=== PATIENT | female | born 1980 | race Caucasian/White ===

== ENCOUNTER 2018-10-28 12:16 | Inpatient (IN) | payer MEDICAID ==
[2018-10-28 14:24] LABS: ADD UMIC YES; UR ASCORBIC ACID NEGATIVE (NEGATIVE); UR BACTERIA FEW /HPF (NONE SEEN); UR BILIRUBIN (Dip) NEGATIVE (NEGATIVE); UR BLOOD (Dip) NEGATIVE (NEGATIVE); UR CLARITY CLEAR (CLEAR); UR COLOR YELLOW (YELLOW); UR GLUCOSE (Dip) NEGATIVE (NEGATIVE); UR KETONES (Dip) NEGATIVE (NEGATIVE); UR LEUKOCYTE ESTERASE (Dip) TRACE Leu/ul (NEGATIVE); UR NITRITE (Dip) NEGATIVE (NEGATIVE); UR RBC 1 /HPF (0-5); UR SQUAMOUS EPITHELIAL CELL FEW /HPF (FEW); UR TOTAL PROTEIN (Dip) 3+ mg/dl (NEGATIVE); UR UROBILINOGEN (Dip) NEGATIVE (NEGATIVE); UR WBC 3 /HPF (0-5)
[2018-10-28 14:27] LABS: ADD MAN DIFF? NO
[2018-10-28 14:32] LABS: BASOPHILS % 0.2 % (0.0-2.0); EOSINOPHILS # 0.1 10^3/ul (0.0-0.5); HEMATOCRIT 39.6 % (37.0-47.0); HEMOGLOBIN 13.2 g/dl (12.0-16.0); LYMPHOCYTES # 2.1 10^3/ul (0.8-2.9); MEAN CORPUSCULAR HEMOGLOBIN 27.6 pg (29.0-33.0); MEAN CORPUSCULAR HGB CONC 33.3 g/dl (32.0-37.0); MEAN CORPUSCULAR VOLUME 82.7 fl (82.0-101.0); MEAN PLATELET VOLUME 11.2 fl (7.4-10.4); MONOCYTE # 0.8 10^3/ul (0.3-0.9); MONOCYTES % 6.3 % (0.0-11.0); NEUTROPHILS % 74.7 % (39.0-77.0); PLATELET COUNT 222 10^3/UL (140-415); RED BLOOD COUNT 4.79 10^6/ul (4.20-5.40); RED CELL DISTRIBUTION WIDTH 13.3 % (11.5-14.5)
[2018-10-28 14:32] LABS: WHITE BLOOD COUNT 12.1 10^3/ul (4.8-10.8)
[2018-10-28] MEDS ORDERED: MAGNESIUM SULFATE 20 GM/500 ML 500 ML IV (14:50)
[2018-10-28] MEDS ORDERED: MAGNESIUM SULFATE 4 GM/100 ML 100 ML (14:50)
[2018-10-28 14:52] LABS: ALANINE AMINOTRANSFERASE 12 IU/L (13-69); ALBUMIN 3.6 g/dl (3.3-4.9); ALBUMIN/GLOBULIN RATIO 1.02; ALKALINE PHOSPHATASE 220 IU/L (42-121); ANION GAP 7 (5-13); ASPARTATE AMINO TRANSFERASE 21 IU/L (15-46); BILIRUBIN,INDIRECT 0.1 mg/dl (0-1.1); BILIRUBIN,TOTAL 0.1 mg/dl (0.2-1.3); BLOOD UREA NITROGEN 8 mg/dl (7-20); CALCIUM 9.5 mg/dl (8.4-10.2); CARBON DIOXIDE 23 mmol/L (21-31); CHLORIDE 107 mmol/L (97-110); CREATININE 0.55 mg/dl (0.44-1.00); Estimated GFR > 60 mL/min (>60); GLUCOSE 74 mg/dl (70-220); POTASSIUM 4.3 mmol/L (3.5-5.1); SODIUM 137 mmol/L (135-144); TOTAL PROTEIN 7.1 g/dl (6.1-8.1); URIC ACID 4.5 mg/dl (3.1-7.9)
[2018-10-28] MEDS ORDERED: BUTORPHANOL 2 MG INJ IV (15:00)
[2018-10-28] MEDS ORDERED: OXYTOCIN 30 UNITS/LR 500 ML IV ×2 (15:00)
[2018-10-28] MEDS ORDERED: METHYLERGONOVINE 0.2 MG INJ IM (15:00)
[2018-10-28] MEDS ORDERED: LIDOCAINE 1% (MPF) 30 ML INJ INJ (15:00)
[2018-10-28] MEDS ORDERED: CARBOPROST 250 MCG INJ IM (15:00)
[2018-10-28] MEDS ORDERED: MISOPROSTOL 50 MCG CAPSULE VAG (15:00)
[2018-10-28] MEDS ORDERED: AMPICILLIN 2 GM/NS (PMX) 100 ML IV (15:00)
[2018-10-28 15:02] LABS: INR 0.85; PROTIME 11.7 Sec (11.9-14.9); PT RATIO 0.9
[2018-10-28] MEDS: LACTATED RINGER'S 1,000 ML IV ×2 (15:10→15:14)
[2018-10-28] MEDS: MAGNESIUM SULFATE 4 GM/100 ML 100 ML IV (15:14)
[2018-10-28] MEDS: MAGNESIUM SULFATE 20 GM/500 ML 500 ML IV (15:20)
[2018-10-28 15:37] LABS: HEPATITIS B SURFACE ANTIGEN NEGATIVE (NEGATIVE)
[2018-10-28] MEDS: LABETALOL HCL 20MG INJ IV ×4 (16:48→23:05)
[2018-10-28] MEDS: MISOPROSTOL 50 MCG CAPSULE PO ×2 (16:49→20:59)
[2018-10-28 18:56] LABS: MAGNESIUM 4.6 mg/dl (1.7-2.5)
[2018-10-28] MEDS ORDERED: AMPICILLIN 1 GM/NS (PMX) 50 ML IV (19:00)
[2018-10-28] MEDS ORDERED: hydrALAzine 20 MG INJ IV (19:30)
[2018-10-28] MEDS ORDERED: LABETALOL HCL 20MG INJ IV (23:30)
[2018-10-29] MEDS ORDERED: hydrALAzine 20 MG INJ IV (01:00)
[2018-10-29 01:27] LABS: MAGNESIUM 5.6 mg/dl (1.7-2.5)
[2018-10-29] MEDS: LACTATED RINGER'S 1,000 ML IV ×2 (01:37→13:02)
[2018-10-29] MEDS ORDERED: OXYTOCIN 10 UNIT INJ ×2 (01:55)
[2018-10-29] MEDS ORDERED: morphine SULFATE/PF (10 MG/10 ML) INJ (01:55)
[2018-10-29] MEDS ORDERED: METOCLOPRAMIDE 10 MG INJ (01:56)
[2018-10-29] MEDS ORDERED: FAMOTIDINE 20 MG INJ (01:56)
[2018-10-29] MEDS ORDERED: ONDANSETRON 4 MG INJ (01:56)
[2018-10-29] MEDS: METOCLOPRAMIDE 10 MG INJ IV (01:59)
[2018-10-29] MEDS ORDERED: MISOPROSTOL 200 MCG TAB PR ×2 (02:00→10:00)
[2018-10-29] MEDS ORDERED: NALOXONE (0.4 MG/ML) INJ IV ×2 (02:00→03:30)
[2018-10-29] MEDS ORDERED: OXYTOCIN 30 UNITS/LR 500 ML IV ×3 (02:00→10:00)
[2018-10-29] MEDS ORDERED: ONDANSETRON 4 MG INJ IV ×3 (02:00→03:30)
[2018-10-29] MEDS ORDERED: HYDROmorphONE 1 MG/5 ML IV SYRINGE IV ×3 (02:00)
[2018-10-29] MEDS ORDERED: METHYLERGONOVINE 0.2 MG INJ IM (02:00)
[2018-10-29] MEDS ORDERED: DIPHENHYDRAMINE 50 MG INJ IV ×3 (02:00→03:30)
[2018-10-29] MEDS ORDERED: FENTAnyl 50 MCG/ML VIAL IV ×2 (02:00)
[2018-10-29] MEDS ORDERED: HYDROmorphONE 0.5 MG/0.5 ML SYG IV ×4 (02:00→03:30)
[2018-10-29] MEDS ORDERED: CARBOPROST 250 MCG INJ IM ×2 (02:00→10:00)
[2018-10-29] MEDS ORDERED: KETOROLAC 30 MG INJ IV ×3 (02:00→03:30)
[2018-10-29] MEDS: ONDANSETRON 4 MG INJ IV (02:01)
[2018-10-29] MEDS: FAMOTIDINE 20 MG INJ IV (02:04)
[2018-10-29 03:11] LABS: AADO2 Venous 71.9 mmHg; MODE ROOM AIR; Sample Type Blood venous; Site CORD; Venous COHb 0.3 %; Venous Fraction OxyHgb 19.2 %; Venous Oxygen Sat 19.7 mmHG (55.0-75.0); Venous Total Hemglobin 16.4 g/dl
[2018-10-29 03:16] LABS: AADO2 Arterial 69.8 mmHg (7.0-24.0); Arterial Base Excess -4.4 mmol/L (-3.0-3); Arterial Blood Gas Oxygen Sat 17.2 mmHG (95.0-98.0); Arterial COHb 0.3 % (0.0-3.0); Arterial Fraction of Oxyhgb 16.8 % (93.0-99.0); Arterial HCO3 23.9 mmol/L (22.0-26.0); Arterial pCO2 56.8 mmhg (35-45); MODE ROOM AIR; Site CORD
[2018-10-29] MEDS ORDERED: ZOLPIDEM 5 MG TAB PO (03:30)
[2018-10-29] MEDS ORDERED: ACETAMINOPHEN 500 MG TAB PO (03:30)
[2018-10-29] MEDS: MAGNESIUM SULFATE 20 GM/500 ML 500 ML IV ×3 (04:01→22:13)
[2018-10-29] MEDS: MISOPROSTOL 200 MCG TAB PR (04:11)
[2018-10-29] MEDS: HYDROmorphONE 0.2 MG/ML PCA IV (04:53)
[2018-10-29] MEDS: CEFAZOLIN 2 GM/50 ML (PMX) 50 ML IVPB (05:27)
[2018-10-29] MEDS: LABETALOL HCL 20MG INJ IV ×2 (05:50→06:55)
[2018-10-29 05:56] LABS: MAGNESIUM 4.9 mg/dl (1.7-2.5)
[2018-10-29] MEDS: OXYTOCIN 30 UNITS/LR 500 ML IV ×2 (06:17→09:52)
[2018-10-29] MEDS ORDERED: PROPOFOL 200 MG INJ (07:00)
[2018-10-29] MEDS ORDERED: LANOLIN HPA 1 PKT TOP (10:00)
[2018-10-29] MEDS: LABETALOL 200 MG TAB PO ×2 (10:28→21:54)
[2018-10-29 10:30] LABS: ADD MAN DIFF? NO
[2018-10-29 10:37] LABS: BASOPHIL # 0.1 10^3/ul (0.0-0.1); BASOPHILS % 0.2 % (0.0-2.0); EOSINOPHILS % 0.1 % (0.0-7.0); HEMATOCRIT 34.8 % (37.0-47.0); HEMOGLOBIN 11.4 g/dl (12.0-16.0); LYMPHOCYTES # 1.3 10^3/ul (0.8-2.9); LYMPHOCYTES % 5.7 % (15.0-51.0); MEAN CORPUSCULAR HEMOGLOBIN 27.2 pg (29.0-33.0); MEAN CORPUSCULAR HGB CONC 32.8 g/dl (32.0-37.0); MEAN CORPUSCULAR VOLUME 83.1 fl (82.0-101.0); MEAN PLATELET VOLUME 10.9 fl (7.4-10.4); MONOCYTE # 1.3 10^3/ul (0.3-0.9); MONOCYTES % 5.9 % (0.0-11.0); NEUTROPHIL # 19.2 10^3/ul (1.6-7.5); NEUTROPHILS % 87.7 % (39.0-77.0); PLATELET COUNT 182 10^3/UL (140-415); RED BLOOD COUNT 4.19 10^6/ul (4.20-5.40); RED CELL DISTRIBUTION WIDTH 13.2 % (11.5-14.5)
[2018-10-29 10:37] LABS: WHITE BLOOD COUNT 21.9 10^3/ul (4.8-10.8)
[2018-10-29] MEDS: CEFAZOLIN 1 GM/50 ML (PMX) 50 ML IVPB ×2 (10:40→17:45)
[2018-10-29] MEDS: NIFEdipine (XL) 30 MG TAB PO (11:07)
[2018-10-29 12:54] LABS: MAGNESIUM 5.6 mg/dl (1.7-2.5)
[2018-10-29 22:02] LABS: RAPID PLASMA REAGIN NONREACTIVE (NR)
[2018-10-30 01:16] LABS: MAGNESIUM 5.8 mg/dl (1.7-2.5)
[2018-10-30] MEDS: CEFAZOLIN 1 GM/50 ML (PMX) 50 ML IVPB (02:05)
[2018-10-30] MEDS: IBUPROFEN 600 MG TAB PO ×3 (06:21→18:09)
[2018-10-30] MEDS: OXYCODONE/ACETAMINOPHEN (5/325) TAB PO (06:21)
[2018-10-30 08:03] LABS: ADD MAN DIFF? NO
[2018-10-30 08:18] LABS: ABNORMAL IP MESSAGE 1; BASOPHILS % 0.2 % (0.0-2.0); EOSINOPHILS # 0.1 10^3/ul (0.0-0.5); EOSINOPHILS % 0.2 % (0.0-7.0); HEMATOCRIT 32.5 % (37.0-47.0); HEMOGLOBIN 10.5 g/dl (12.0-16.0); LYMPHOCYTES # 1.1 10^3/ul (0.8-2.9); LYMPHOCYTES % 4.4 % (15.0-51.0); MEAN CORPUSCULAR HGB CONC 32.3 g/dl (32.0-37.0); MEAN CORPUSCULAR VOLUME 83.5 fl (82.0-101.0); MEAN PLATELET VOLUME 11.3 fl (7.4-10.4); MONOCYTE # 1.1 10^3/ul (0.3-0.9); MONOCYTES % 4.5 % (0.0-11.0); NEUTROPHIL # 22.7 10^3/ul (1.6-7.5); NEUTROPHILS % 89.8 % (39.0-77.0); PLATELET COUNT 196 10^3/UL (140-415); RED BLOOD COUNT 3.89 10^6/ul (4.20-5.40); RED CELL DISTRIBUTION WIDTH 13.6 % (11.5-14.5)
[2018-10-30 08:18] LABS: WHITE BLOOD COUNT 25.3 10^3/ul (4.8-10.8)
[2018-10-30 08:33] LABS: POSITIVE DIFF @See below
[2018-10-30] MEDS: NIFEdipine (XL) 30 MG TAB PO (09:13)
[2018-10-30] MEDS: SENNA TAB PO ×2 (09:14→21:06)
[2018-10-30] MEDS: LABETALOL 200 MG TAB PO ×2 (09:14→21:06)
[2018-10-30] MEDS: INFLUENZA VIRUS VACCINE 0.5 ML (DISPENSING) IM* (11:53)
[2018-10-30] MEDS: LACTATED RINGER'S 1,000 ML IV (16:19)
[2018-10-30] MEDS: CEFAZOLIN 2 GM/50 ML (PMX) 50 ML IVPB (17:04)
[2018-10-30 18:21] LABS: ADD UMIC YES; UR ASCORBIC ACID NEGATIVE (NEGATIVE); UR BACTERIA FEW /HPF (NONE SEEN); UR BILIRUBIN (Dip) NEGATIVE (NEGATIVE); UR BLOOD (Dip) 3+ mg/dL (NEGATIVE); UR CLARITY CLEAR (CLEAR); UR COLOR YELLOW (YELLOW); UR GLUCOSE (Dip) NEGATIVE (NEGATIVE); UR KETONES (Dip) NEGATIVE (NEGATIVE); UR LEUKOCYTE ESTERASE (Dip) TRACE Leu/ul (NEGATIVE); UR NITRITE (Dip) NEGATIVE (NEGATIVE); UR RBC 101 /HPF (0-5); UR SPECIFIC GRAVITY (Dip) 1.004 (1.003-1.030); UR SQUAMOUS EPITHELIAL CELL FEW /HPF (FEW); UR TOTAL PROTEIN (Dip) NEGATIVE (NEGATIVE); UR UROBILINOGEN (Dip) NEGATIVE (NEGATIVE); UR WBC 11 /HPF (0-5)
[2018-10-31] MEDS: IBUPROFEN 600 MG TAB PO ×4 (00:23→17:41)
[2018-10-31] MEDS: CEFAZOLIN 2 GM/50 ML (PMX) 50 ML IVPB ×3 (01:07→16:33)
[2018-10-31] MEDS: LACTATED RINGER'S 1,000 ML IV ×2 (03:07→16:34)
[2018-10-31 07:58] LABS: ADD MAN DIFF? NO
[2018-10-31 08:03] LABS: WHITE BLOOD COUNT 19.1 10^3/ul (4.8-10.8)
[2018-10-31 08:03] LABS: BASOPHILS % 0.2 % (0.0-2.0); EOSINOPHILS # 0.1 10^3/ul (0.0-0.5); EOSINOPHILS % 0.6 % (0.0-7.0); HEMATOCRIT 30.6 % (37.0-47.0); HEMOGLOBIN 9.8 g/dl (12.0-16.0); LYMPHOCYTES # 1.2 10^3/ul (0.8-2.9); LYMPHOCYTES % 6.3 % (15.0-51.0); MEAN CORPUSCULAR HEMOGLOBIN 27.3 pg (29.0-33.0); MEAN CORPUSCULAR VOLUME 85.2 fl (82.0-101.0); MEAN PLATELET VOLUME 10.7 fl (7.4-10.4); NEUTROPHIL # 16.7 10^3/ul (1.6-7.5); NEUTROPHILS % 87.1 % (39.0-77.0); PLATELET COUNT 208 10^3/UL (140-415); RED BLOOD COUNT 3.59 10^6/ul (4.20-5.40); RED CELL DISTRIBUTION WIDTH 14.1 % (11.5-14.5)
[2018-10-31] MEDS: SENNA TAB PO ×2 (09:04→20:54)
[2018-10-31] MEDS: LABETALOL 200 MG TAB PO ×2 (09:04→20:53)
[2018-10-31] MEDS: NIFEdipine (XL) 30 MG TAB PO (09:04)
[2018-11-01] MEDS: IBUPROFEN 600 MG TAB PO ×3 (00:37→12:42)
[2018-11-01] MEDS: CEFAZOLIN 2 GM/50 ML (PMX) 50 ML IVPB ×3 (00:55→14:00)
[2018-11-01] MEDS: LACTATED RINGER'S 1,000 ML IV (01:59)
[2018-11-01] MEDS ORDERED: IBUPROFEN 600 MG TAB PO (06:00)
[2018-11-01] MEDS: SENNA TAB PO (09:25)
[2018-11-01] MEDS: NIFEdipine (XL) 30 MG TAB PO (09:26)
[2018-11-01] MEDS: LABETALOL 200 MG TAB PO (09:26)
[2018-11-01] MEDS: DIPHTH/TET/ACEL PERTUSS (ADULT) 0.5 ML VIAL IM* (09:27)
== END 2018-11-01 13:45 | disposition home or self-care (01) | DRG 787 ==
LOC: OBT 12:16 → L-D 10-29 02:21 → PP1 10-29 09:34 → L-D 13:29 → OBT 14:10 → L-D 14:10
PROC: 3E033VJ Introduction of Other Hormone into Peripheral Vein, Percutaneous Approach (ICD-10-PCS; 2018-10-28)
PROC: 10D00Z1 Extraction of Products of Conception, Low, Open Approach (ICD-10-PCS; principal; 2018-10-29)
PROC: 10907ZC Drainage of Amniotic Fluid, Therapeutic from Products of Conception, Via Natural or Artificial Opening (ICD-10-PCS; 2018-10-29)
DX: O14.14 Severe pre-eclampsia complicating childbirth (principal); O76 Abnormality in fetal heart rate and rhythm complicating labor and delivery; O99.12 Other diseases of the blood and blood-forming organs and certain disorders involving the immune mechanism complicating childbirth; D72.829 Elevated white blood cell count, unspecified; Z3A.34 34 weeks gestation of pregnancy; Z37.0 Single live birth
CPT/HCPCS: 36415; 36600; 74018; 76815; 76818; 80053; 81001; 82803; 83735; 84560; 85025; 85610; 85730; 86592; 86850; 86900; 86901; 87086; 87340; 88307; 90686; 99464